=== PATIENT | male | born 1985 | race Two or more races ===

== ENCOUNTER 2024-07-09 12:44 | Emergency (ER) | payer OTHER ==
[~2024-07-09] VITALS: Ht 175.3 cm; Wt 79.4 kg
[2024-07-09] MEDS ORDERED: KETOROLAC TROMETHAMINE 30 MG VIAL IM ONE (13:45)
[2024-07-09] MEDS ORDERED: KETOROLAC TROMETHAMINE 30 MG VIAL ONE (13:57)
== END 2024-07-09 14:29 | disposition home or self-care (01) ==
LOC: ER 12:45
DX: S23.41XA Sprain of ribs, initial encounter (principal); X58.XXXA Exposure to other specified factors, initial encounter; Y93.B9 Activity, other involving muscle strengthening exercises; Y92.89 Other specified places as the place of occurrence of the external cause; Y99.9 Unspecified external cause status

== ENCOUNTER → 2024-07-20 08:00 | Outpatient (CLI) | payer OTHER | END | disposition home or self-care (01) | LOC: RAD 08:00 | PROVIDERS: ATTEND General Practice | DX: R00.2 Palpitations (principal); R00.1 Bradycardia, unspecified; R07.9 Chest pain, unspecified ==